=== PATIENT | male | born 1980 | race Caucasian/White ===

== ENCOUNTER 2017-02-25 19:51 | Emergency (ER) | payer OTHER ==
[~2017-02-25] VITALS: Ht 190.5 cm; Wt 81.2 kg
[2017-02-25] MEDS ORDERED: Ketorolac 30mg Inj IM ONE (20:30)
[2017-02-25] MEDS ORDERED: Cyclobenzaprine 10mg Tab ORAL ONE (20:30)
[2017-02-25] MEDS ORDERED: CYCLOBENZAPRINE10 MG ORAL (21:19)
[2017-02-25] MEDS ORDERED: IBUPROFEN600 MG ORAL (21:19)
[2017-02-25] MEDS ORDERED: BACITRACIN1 APPLIC TOPIC (21:19)
[2017-02-25 21:35] VITALS: BP 124/75
--- NOTE | 2017-02-26 09:35 | Diagnostic Imaging Report ---
Indication: Headache Technique: Continuous helical CT scanning of the head was performed without intravenous contrast material. Axial and coronal 5 mm sections were generated. Radiation dose was minimized using automated exposure control Dose: Total Dose Length Product - DLP [address] Dose Index - CTDIvol(s) 70.38 mGy. Comparison: None Findings: The ventricular system is normal in size and configuration. There is no shift of midline structures. No abnormal extra-axial fluid collections are noted. There is no evidence of intracerebral bleeding. No other abnormal high or low density areas are noted within the brain. There is questionable minimal right periorbital soft tissue swelling. The orbits are otherwise unremarkable. The calvarium is intact. The included sinuses are clear. The mastoids are clear. Impression: Normal CT scan of the head without contrast material. This agrees with the preliminary interpretation provided overnight by Dr. Martin The CT scanner at [facility] is accredited by the [employer] and the scans are performed using protocols designed to limit radiation exposure to as low as reasonably achievable to attain images of sufficient resolution adequate for diagnostic evaluation.
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
== END 2017-02-25 21:35 | disposition home or self-care (01) ==
LOC: EMR 20:40
DX: S16.1XXA Strain of muscle, fascia and tendon at neck level, initial encounter (principal); S09.8XXA Other specified injuries of head, initial encounter; S30.810A Abrasion of lower back and pelvis, initial encounter; V43.62XA Car passenger injured in collision with other type car in traffic accident, initial encounter; Y92.414 Local residential or business street as the place of occurrence of the external cause; R42 Dizziness and giddiness; R51 Headache
CPT/HCPCS: 70450; 96372; 99284; J1885